=== PATIENT | female | born 1970 | race Two or more races ===

== ENCOUNTER 2022-12-24 18:03 | Emergency (ER) | payer OTHER ==
[~2022-12-24] VITALS: Ht 154.9 cm; Wt 65.9 kg
[~2022-12-24 18:03] MED LIST: ACET-66 PO
[2022-12-24] MEDS ORDERED: ESCI-8 PO (18:21)
[2022-12-24 19:23] LABS: BASOPHILS % (AUTO) 0.6 % (0.0-2.0); EOSINOPHILS % (AUTO) 2.5 % (1.0-6.0); HEMATOCRIT 38.4 % (36-46); HEMOGLOBIN 12.8 g/dL (12.0-16.0); LYMPHOCYTES # (AUTO) 3.3 K/uL (1.0-4.8); LYMPHOCYTES % (AUTO) 48.4 % (22.0-44.0); MEAN CORPUSCULAR HEMOGLOBIN 30.8 pg (26.0-34.0); MEAN CORPUSCULAR HGB CONC 33.2 G/dL (31.0-37.0); MEAN CORPUSCULAR VOLUME 93 fL (80-100); MONOCYTES # (AUTO) 0.5 K/uL (0.1-1.0); MONOCYTES % (AUTO) 6.7 % (2.0-9.0); NEUTROPHILS # (AUTO) 2.8 K/uL (1.8-7.7); NEUTROPHILS % (AUTO) 41.8 % (40.0-70.0); PLATELET COUNT (AUTO) 269 K/uL (150-450); RED BLOOD CELL COUNT(AUTO) 4.16 MIL/uL (4.00-5.20); RED CELL DISTRIBUTION WIDTH 13.3 % (11.5-14.5)
[2022-12-24 19:38] LABS: ANION GAP 7 mmol/L (8-16); CARBON DIOXIDE 28 mmol/L (22-29); CHLORIDE 106 mmol/L (98-107); CREATININE 0.68 mg/dL (0.60-1.30); GLOMERULAR FILTR. RATE CALC > 60 mL/min (>60); GLUCOSE,RANDOM 117 mg/dL (70-110); POTASSIUM 3.9 mmol/L (3.5-5.1); SODIUM SERUM 141 mmol/L (136-145)
[2022-12-24 19:39] LABS: ALANINE AMINOTRANSFERASE 37 U/L (12-78); ALBUMIN 3.5 g/dL (3.4-5.0); ALKALINE PHOSPHATASE 117 U/L (46-116); ASPARTATE AMINOTRANSFERASE 26 U/L (15-37); BILIRUBIN,TOTAL 0.2 mg/dL (0.1-1.0); CALCIUM, TOTAL 8.5 mg/dL (8.8-10.5); LIPASE 161 U/L (73-393); TOTAL PROTEIN, SERUM 7.7 g/dL (6.4-8.2)
[2022-12-24] MEDS ORDERED: LORazepam 2 MG/ML VIAL IVP ONE (21:15)
[2022-12-24 21:58] VITALS: BP 119/67
[2022-12-24] MEDS ORDERED: LORA-1000 PO (22:40)
== END 2022-12-25 01:47 | disposition home or self-care (01) ==
LOC: EMS 18:04
DX: F43.22 Adjustment disorder with anxiety (principal); R07.89 Other chest pain; J45.909 Unspecified asthma, uncomplicated; Z88.6 Allergy status to analgesic agent; Z88.8 Allergy status to other drugs, medicaments and biological substances
CPT/HCPCS: 99285; 96374; 71045; 80053; 83690; 84484; 85025; 93005; J2060

== ENCOUNTER 2023-02-14 19:11 | Emergency (ER) | payer OTHER ==
[~2023-02-14] VITALS: Ht 152.4 cm; Wt 65.0 kg
[~2023-02-14 19:11] MED LIST changes: +ESCI-8 PO; +LORA-1000 PO
[2023-02-14] MEDS ORDERED: ACETAMINOPHEN 500 MG TABLET PO ONE (19:30)
[2023-02-14] MEDS ORDERED: ACET-66 PO (20:04)
[2023-02-14 20:30] VITALS: TEMP 97.3
[2023-02-14 21:14] VITALS: BP 127/68; PULSE 70; RESP 16
== END 2023-02-14 21:10 | disposition home or self-care (01) ==
LOC: EMS 19:12
DX: M25.511 Pain in right shoulder (principal); F41.9 Anxiety disorder, unspecified; Z90.49 Acquired absence of other specified parts of digestive tract; Z98.51 Tubal ligation status; Z98.890 Other specified postprocedural states; Z88.6 Allergy status to analgesic agent; Z88.8 Allergy status to other drugs, medicaments and biological substances
CPT/HCPCS: 99283